=== PATIENT | male | born 1995 | race African-American/Black ===

== ENCOUNTER 2023-05-28 11:49 | Emergency (ER) | payer OTHER, SELFPAY ==
[2023-05-28 12:04] VITALS: BP 130/68; PULSE 62; RESP 16; TEMP 36.8; O2SAT 100; BMI 24.3
--- NOTE | 2023-05-28 12:09 | DI.RAD.S_ITS ---
PROCEDURE: XR ANKLE LT MIN 3V INDICATIONS: left ankle injury yesterday while wrestling TECHNIQUE: 3 views of the ankle were acquired. COMPARISON: None. FINDINGS: Bones: No fractures or dislocations. Ankle mortise is normally aligned. No suspicious bony lesions. Soft tissues: Moderate tibiotalar joint effusion. Achilles tendon appears normal. IMPRESSION: No displaced fracture, with a moderate ankle joint effusion.. If there remains a high clinical concern or the patient cannot bear weight, consider cross-sectional imaging to exclude an occult fracture. Dictated by: Blayne Ventura M.D. on 05/28/2023 at 12:51 Approved by: Blayne Ventura M.D. on 05/28/2023 at 12:51
--- NOTE | 2023-05-28 12:09 | DI.RAD.S_ITS ---
PROCEDURE: XR FOOT LT MIN 3V INDICATIONS: left ankle injury yesterday while wrestling TECHNIQUE: 3 views of the foot were acquired. COMPARISON: None. FINDINGS: Bones: No fractures or dislocations. No suspicious bony lesions. Soft tissues: Moderate tibiotalar joint effusion. Achilles tendon appears normal. IMPRESSION: No acute bony abnormality. Dictated by: Blayne Ventura M.D. on 05/28/2023 at 12:52 Approved by: Blayne Ventura M.D. on 05/28/2023 at 12:53
--- NOTE | 2023-05-28 12:10 | DI.RAD.S_ITS ---
PROCEDURE: XR TIBIA FIBULA LT 2V INDICATIONS: left ankle injury yesterday while wrestling TECHNIQUE: 2 views of the tibia and fibula were acquired. COMPARISON: None. FINDINGS: Bones: No fractures or dislocations. No suspicious bony lesions. Soft tissues: No suspicious soft tissue calcifications or masses. IMPRESSION: No acute bony abnormality. Dictated by: Blayne Ventura M.D. on 05/28/2023 at 12:52 Approved by: Blayne Ventura M.D. on 05/28/2023 at 12:52
--- NOTE | 2023-05-28 12:56 | ED.LOWEXIN ---
HPI - Extremity Injury (Lower) <Darnell Geller PA-C - Last Filed: 05/28/23 15:17> General Chief Complaint: Extremity Injury, Lower Stated Complaint: rolled ankle Time Seen by Provider: 05/28/23 12:19 Source: patient Mode of arrival: Ambulatory History of Present Illness HPI Narrative: 28-year-old male with no reported past medical history presents to the ED with 2 days of left ankle pain. Patient injured his left ankle during a wrestling match yesterday, reports hearing a pop. Patient has been able to bear weight and walk, although somewhat painful. Patient denies numbness, tingling, weakness. Related Data Allergies Allergy/AdvReac Type Severity Reaction Status Date / Time No Known Drug Allergies Allergy Verified 05/28/23 12:04 Review of Systems <Darnell Geller PA-C - Last Filed: 05/28/23 15:17> Constitutional Constitutional: Denies chills, Denies fatigue, Denies fever(s), Denies frequent falls, Denies lethargy and Denies weakness Eyes Eyes: Denies change in vision, Denies eye discharge, Denies irritation and Denies loss of vision ENT Ears, Nose, Mouth, and Throat: Denies change in voice, Denies dizziness, Denies neck pain, Denies sore throat and Denies throat swelling Cardiovascular Cardiovascular: Denies chest pain, Denies irregular heart rhythm, Denies lightheadedness, Denies palpitations, Denies dyspnea, Denies dyspnea on exertion and Denies orthopnea Respiratory Respiratory: Denies cough, Denies dyspnea, Denies dyspnea on exertion and Denies wheezing Gastrointestinal Gastrointestinal: Denies abdominal pain, Denies change in bowel habits, Denies diarrhea, Denies nausea and Denies vomiting Musculoskeletal Musculoskeletal: Denies neck pain and Denies numbness Comments: Left ankle pain, swelling Integumentary/Breasts Skin/Breast: Denies pruritus, Denies erythema, Denies rash and Denies wounds Neurologic Neurologic: Denies behavioral changes, Denies confusion, Denies dizziness, Denies frequent falls, Denies loss of vision, Denies numbness and Denies weakness Psychiatric Psychiatric: Denies anxiety, Denies behavioral changes, Denies confusion, Denies depression, Denies homicidal ideation and Denies suicidal ideation Endocrine Endocrine: Denies fatigue, Denies flushing and Denies palpitations Hematologic/Lymphatic Hematologic/Lymphatic: Denies easy bruising Allergic/Immunologic Allergic/Immunologic: Denies urticaria, Denies throat swelling and Denies wheezing Patient History <Darnell Geller PA-C - Last Filed: 05/28/23 15:17> Social History Smoking Status: Never smoker Smoking Status: Never smoker Substance Use Type: does not use Exam <Darnell Geller PA-C - Last Filed: 05/28/23 15:17> Narrative Exam Narrative: Const General:?cooperative, healthy appearing and comfortable [facility] Head:?normal to inspection Ears:?hearing grossly normal bilaterally Nose:?external nose normal Face and sinus:?normal facial exam and sinuses nontender Mouth:?oral mucosae normal Throat:?posterior oropharynx normal Eyes General:?appearance normal, both eyes and all related structures Neck Neck:?normal visual inspection and no lymphadenopathy noted Resp Effort & Inspection:?normal respiratory effort Auscultation:?clear to auscultation bilaterally Cardio Rate:?regular rate Rhythm:?regular rhythm Musculoskeletal There is some swelling, tenderness the left ankle in the area of the medial and lateral malleoli. There is full range of motion. Strength and sensation is intact. Patient is neurovascularly intact. Patient is able to bear weight and walk. Neuro General:?patient alert, patient awake and patient oriented x3 Initial Vital Signs Initial Vital Signs: Vital Signs Temperature 98.2 F 05/28/23 12:04 Pulse Rate 62 05/28/23 12:04 Respiratory Rate 16 05/28/23 12:04 Blood Pressure 130/68 05/28/23 12:04 Pulse Oximetry 100 05/28/23 12:04 Oxygen Delivery Method Room Air 05/28/23 12:04 <Grace Huddleston DO - Last Filed: 05/29/23 08:13> Initial Vital Signs Initial Vital Signs: Vital Signs Temperature 98.2 F 05/28/23 12:04 Pulse Rate 62 05/28/23 12:04 Respiratory Rate 16 05/28/23 12:04 Blood Pressure 130/68 05/28/23 12:04 Pulse Oximetry 100 05/28/23 12:04 Oxygen Delivery Method Room Air 05/28/23 12:04 Course <Darnell Geller PA-C - Last Filed: 05/28/23 15:17> Orders Ordered: Discontinued Medications Ibuprofen (Ibuprofen 400 Mg Tablet) 800 mg PO NOW ONE Stop: 05/28/23 12:56 Last Admin: 05/28/23 13:00 Dose: 800 mg Documented By: MLM Vital Signs Vital signs: Vital Signs - 8 hr 05/28/23 12:04 Temperature 98.2 F Pulse Rate 62 Respiratory Rate 16 Blood Pressure 130/68 Pulse Oximetry 100 Oxygen Delivery Method Room Air <Grace Hdudleston DO - Last Filed: 05/29/23 08:13> Orders Ordered: Discontinued Medications Ibuprofen (Ibuprofen 400 Mg Tablet) 800 mg PO NOW ONE Stop: 05/28/23 12:56 Last Admin: 05/28/23 13:00 Dose: 800 mg Documented By: MLM Vital Signs Vital signs: Vital Signs - 8 hr 05/28/23 12:04 Temperature 98.2 F Pulse Rate 62 Respiratory Rate 16 Blood Pressure 130/68 Pulse Oximetry 100 Oxygen Delivery Method Room Air MDM - Extremity Injury (Lower) <Darnell Geller PA-C - Last Filed: 05/28/23 15:17> MDM Narrative Medical decision making narrative: 28-year-old male with no reported past medical history presents to the ED with 2 days of left ankle pain. Concern for fracture/dislocation versus musculoskeletal sprain/strain versus other. Obtained x-rays which show no fracture/dislocations. Patient's symptoms most consistent with a musculoskeletal sprain/strain. Applies an Mac wrap. Applied Recommend RICE, ibuprofen. Recommend follow-up with PCP as soon as possible. ED return precautions discussed with patient. Patient verbalized understanding. Medical records reviewed: Yes Discharge Plan Departure Patient Disposition: Home Clinical Impression: Ankle sprain and strain Instructions: DI for Ankle Sprain Activity Restrictions/Additional Instructions: You were evaluated in the ED today for an ankle injury. Your x-rays did not show any fractures or dislocations. Your symptoms are most consistent with a musculoskeletal sprain/strain. You may continue to rest, ice, apply Mac wraps, elevate the injured ankle. You may bear weight as is comfortable. You may take 800 mg of ibuprofen every 8 hours with food for pain. Please follow-up with your PCP as soon as possible. Return to the ED if you experience worsening symptoms, numbness, tingling, weakness. Stand Alone Forms: Patient Portal/API ED Sign-out <Grace Huddleston - Last Filed: 05/29/23 08:13> Cosign ED Attending Cosignature Attestation: I was immediately available in the department for consultation.
[2023-05-28] MEDS: IBUPROFEN 400 MG TABLET 800 MG PO (13:00)
== END 2023-05-28 13:28 | disposition home or self-care (01) ==
PROVIDERS: Emergency Provider Student in an Organized Health Care Education/Training Program
DX: S93.402A Sprain of unspecified ligament of left ankle, initial encounter (principal); S96.912A Strain of unspecified muscle and tendon at ankle and foot level, left foot, initial encounter; Y93.72 Activity, wrestling
CPT/HCPCS: 73590; 73610; 73630; 99283